=== PATIENT | female | born 2000 | race African-American/Black ===

== ENCOUNTER 2019-10-11 15:52 | Emergency (ER) | payer OTHER ==
[~2019-10-11] VITALS: Ht 165.1 cm; Wt 89.4 kg
[2019-10-11 16:40] LABS: ABSOLUTE NEUTROPHILS 4.6 thou/uL (1.4-8.2); BASOPHILS 0.8 % (0.0-2.0); EOSINOPHILS 6.1 % (0.0-3.0); HEMATOCRIT 39.1 % (37.0-47.0); HEMOGLOBIN 12.3 gm/dL (12.0-15.0); LYMPHOCYTES 14.3 % (24.0-44.0); MCH 21.7 pg (26.0-34.0); MCHC 31.4 g/dL (28.0-37.0); MCV 69.2 fL (80.0-100.0); MONOCYTES 7.4 % (1.0-8.0); PLATELET COUNT 222 thou/uL (150-400); POLYS 71.4 % (36.0-66.0); RBC 5.65 mil/uL (4.20-5.00); RDW 14.6 % (10.5-14.5); WBC 6.5 thou/uL (4.0-11.0)
[2019-10-11 16:49] LABS: CALCIUM 9.1 mg/dL (8.5-10.1); CREATININE 0.8 mg/dL (0.6-1.0); POTASSIUM 3.7 mmol/L (3.5-5.1)
[2019-10-11 17:51] LABS: HYPOCHROMASIA 2+; LARGE PLATELETS OCCASIONAL; MICROCYTES 1+
[2019-10-11 19:04] LABS: AMP/METHAMP Negative (Negative); BARBITURATES Negative (Negative); BENZODIAZEPINES Negative (Negative); COCAINE POSITIVE (Negative); METHADONE Negative (Negative); OPIATES Negative (Negative); PCP Negative (Negative)
[2019-10-11] MEDS ORDERED: IBUPROFEN 600600 M1 PO (21:04)
[2019-10-11] MEDS ORDERED: PROAIR HFA8.5 GM INH (21:13)
[2019-10-11 21:21] VITALS: BP 114/73
== END 2019-10-11 21:24 | disposition home or self-care (01) ==
LOC: ER 15:52
PROVIDERS: Nurse Practitioner Family
DX: S00.531A Contusion of lip, initial encounter (principal); R45.851 Suicidal ideations; J45.909 Unspecified asthma, uncomplicated; F17.210 Nicotine dependence, cigarettes, uncomplicated; Z79.899 Other long term (current) drug therapy; Y04.0XXA Assault by unarmed brawl or fight, initial encounter; Y93.89 Activity, other specified; Y92.89 Other specified places as the place of occurrence of the external cause; Y99.8 Other external cause status